=== PATIENT | female | born 1995 | race African-American/Black ===

== ENCOUNTER 2023-02-15 00:40 | Emergency (ER) | payer OTHER ==
[2023-02-15 00:50] VITALS: BP 144/81; PULSE 74; RESP 16; TEMP 98.9; BMI 31.1
[2023-02-15] MEDS ORDERED: AMOX TR/POT CLAV 875MG/125MG TABLETS (FP) PO ONE (01:02)
[2023-02-15] MEDS ORDERED: AMOX TR/POT CLAV 875MG/125MG TABLETS (FP) ONE (01:09)
== END 2023-02-15 01:14 | disposition home or self-care (01) ==
LOC: FER 00:40
DX: H92.01 Otalgia, right ear (principal); R09.81 Nasal congestion; R13.10 Dysphagia, unspecified; H93.8X1 Other specified disorders of right ear; H66.91 Otitis media, unspecified, right ear
CPT/HCPCS: 99283-25

== ENCOUNTER 2023-03-09 17:49 | Emergency (ER) | payer OTHER ==
[2023-03-09 18:04] VITALS: BP 109/76; PULSE 83; RESP 18; TEMP 98.3; BMI 31.5
== END 2023-03-09 19:19 | disposition home or self-care (01) ==
LOC: FER 17:49
DX: R76.11 Nonspecific reaction to tuberculin skin test without active tuberculosis (principal)
CPT/HCPCS: 71046-TC-FY; 99283-25

== ENCOUNTER 2023-04-01 21:12 | Emergency (ER) | payer OTHER ==
[2023-04-01 21:27] VITALS: BP 120/78; PULSE 88; RESP 16; TEMP 99.6; BMI 30.1
[2023-04-01] MEDS ORDERED: IBUPROFEN 600 MG TABLET (FP) PO ONE ×2 (22:22→22:24)
[2023-04-01] MEDS ORDERED: AZITHROMYCIN 500 MG TABLET PO ONE (22:22)
[2023-04-01] MEDS ORDERED: AZITHROMYCIN 500 MG TABLET ONE (22:24)
[2023-04-01] MEDS ORDERED: AZITHROMYCIN 250 MG TABLET ONE (22:24)
[2023-04-02 01:18] LABS: THROAT:GRP A STREP DETECTED (NOTDETECTED)
== END 2023-04-01 22:31 | disposition home or self-care (01) ==
LOC: FER 21:12
DX: J01.10 Acute frontal sinusitis, unspecified (principal); J02.9 Acute pharyngitis, unspecified; R50.9 Fever, unspecified; M79.10 Myalgia, unspecified site; R51.9 Headache, unspecified; R53.83 Other fatigue; H92.09 Otalgia, unspecified ear; Z20.822 Contact with and (suspected) exposure to COVID-19
CPT/HCPCS: 0241U-QW; 87651; 99283-25

== ENCOUNTER 2023-07-18 20:51 | Emergency (ER) | payer OTHER ==
[2023-07-18 21:07] VITALS: BP 131/78; PULSE 98; RESP 20; TEMP 97.8; BMI 30.4
[2023-07-18] MEDS ORDERED: ACETAMINOPHEN INJECTION 100 ML IVPB ONE (21:27)
[2023-07-18] MEDS: ACETAMINOPHEN 1000 MG/100 ML BAG IVPB ONE (21:36)
[2023-07-18 21:49] LABS: HCG,QUALITATIVE URINE Negative
[2023-07-18 21:52] LABS: HEMATOCRIT 36.1 % (32.4-45.2); HEMOGLOBIN 11.8 G/dL (10.7-15.3); MCHC 32.7 g/dl (32.0-36.0); MEAN CELL VOLUME 91.7 fl (80-96); MEAN PLT VOLUME 10.3 fl (7.5-11.1); PLATELET COUNT 246.1 10^3/uL (134-434); RBC 3.94 10^6/uL (3.60-5.2); RDW 13.2 % (11.6-15.6); WHITE BLOOD COUNT 7.7 10^3/uL (4.0-10.8)
[2023-07-18 22:02] LABS: PLATELET ESTIMATE ADEQUATE
[2023-07-18 22:04] LABS: ALK PHOS 58 U/L (45-117); ANION GAP 9 mmol/L (4-13); BILIRUBIN,TOTAL 0.5 mg/dl (0.2-1); CALCIUM 9.1 mg/dl (8.5-10.1); CHLORIDE 104 mmol/L (98-107); CO2 24 mmol/L (21-32); CREATININE 0.7 mg/dl (0.6-1.3); GLUCOSE,RANDOM 92 mg/dl (74-106); INR 1.04 (0.83-1.09); POTASSIUM 3.5 mmol/L (3.5-5.1); PROTHROMBIN TIME (PATIENT) 11.8 SEC (9.7-13.0); SGOT/AST 12 U/L (15-37); SGPT/ALT 10 U/L (7-52); SODIUM 137 mmol/L (136-145); TOT PROT 6.9 g/dl (6.4-8.2)
== END 2023-07-18 23:34 | disposition home or self-care (01) ==
LOC: FER 20:51
PROC: 3E033NZ Introduction of Analgesics, Hypnotics, Sedatives into Peripheral Vein, Percutaneous Approach (ICD-10-PCS; principal; 2023-07-18)
DX: R07.89 Other chest pain (principal); M54.6 Pain in thoracic spine; R09.81 Nasal congestion; R05.9 Cough, unspecified
CPT/HCPCS: 36415; 71045-TC-FY; 80053; 81003; 84484; 84703; 85027; 85379; 85610; 93005; 99285-25; J0131